=== PATIENT | male | born 1990 | race Caucasian/White ===

== ENCOUNTER 2022-04-15 11:12 | Outpatient (CLI) | payer OTHER, SELFPAY ==
--- NOTE | 2022-04-15 11:29 | CT_ITS ---
WS: [id number] CT ABDOMEN AND PELVIS NONCONTRAST HISTORY: R FLANK PAIN/ RLQ PAIN TECHNIQUE: Imaging performed through the abdomen and pelvis. Coronal and sagittal reformats are submi tted. All CT scans at [facility] use at least one of these dose optimization techniques: auto mated exposure control; mA and/or kV adjustment per patient size (includes targeted exams where dose is matched to clinical indication); or iterative reconstruction. DLP: 1460.85 mGy.cm COMPARISON: None available. Lower thorax: Lung bases are clear. Visualized heart is normal. No hiatal hernia. Liver: Normal size liver with mild hepatic steatosis. Gallbladder: Normal gallbladder. Pancreas: Normal size and attenuation. Normal pancreatic duct. No pancreatitis or mass. Spleen: Normal. Adrenal glands: Normal. No mass. Right kidney: Very minimal perinephric edema greatest at the renal pelvis. There is mild dilatation o f the renal pelvis and the calyces. Mild RIGHT ureteral dilatation secondary to a 4 mm calcification at the UV junction. There are numerous additional nonobstructing calcifications in the renal pelvis o f a similar size. Left kidney: Normal size kidney with numerous nonobstructing calcifications measuring approximately 4 mm. Aorta: Normal abdominal aorta, no aneurysm or atherosclerosis. No free fluid, intraperitoneal air or significant lymphadenopathy. GI tract: Stomach and small bowel are negative. The appendix is normal. No colon obstruction. No sign ificant diverticulosis. Abdominal wall: Negative. No hernia. Pelvis: Urinary bladder is not distended. Again noted is a 4 mm distal RIGHT ureteral calcification. Inguinal canals are patent bilaterally containing fat only. Osseous structures: Unremarkable. CT/CT kidney stone [id number] IMPRESSION: 1. Mild RIGHT hydroureteronephrosis secondary to a 4 mm calcification at the U VJ. 2. Additional numerous similar sized nonobstructing calcifications within each kidney. 3. Normal appendix. 4. Small hiatal hernia.
== END 2022-04-15 11:13 | disposition home or self-care (01) ==
PROVIDERS: PCP Nurse Practitioner Family; Visit Provider Nurse Practitioner Family
DX: N13.30 Unspecified hydronephrosis (principal); N20.1 Calculus of ureter
CPT/HCPCS: 74176

== ENCOUNTER 2022-04-15 12:09 | Emergency (ER) | payer OTHER, SELFPAY ==
[2022-04-15 12:49] VITALS: BP 158/94; PULSE 80; RESP 16; TEMP 36.7; O2SAT 97; BMI 36.5
--- NOTE | 2022-04-15 12:56 | W.ED.ABDPA2 ---
Documented by User: DARRELL Clark 04/15/22 14:04 HPI - Abdominal Pain General: Chief Complaint: Abdominal Pain Stated Complaint: Vomiting, Abd pain Time Seen by Provider: 04/15/22 12:54 Source: patient Mode of arrival: ambulatory Limitations: no limitations History of Present Illness: Patient is a nice 31-year-old male who presents to ED today with a complaint of right flank pain radiating around into his right abdomen that began around 6:30 AM this morning. Patient states he has felt very nauseous and did have an episode of emesis on his way to the ED. Prior to his arrival here he did have an evaluation by another provider who ordered a UA as well as a CT scan of his abdomen. Patient states he came to the ED because he was on his way home and he began having severe pain. He is not running fevers. He is having normal bowel movements. CT scan results were already resulted upon his arrival here and show a right 4 mm UVJ stone. Patient has no history of kidney or ureter stones. He does report some urinary urgency and frequency. MD elicited complaint: abdominal pain Onset (ago): hour(s) Pain Consistency: constant Location: RUQ, RLQ and R flank Severity: severe Quality: sharp Exacerbating factors: nothing Relieving factors: nothing Associated Symptoms: Reports nausea and vomiting; Denies chills, diarrhea, dysuria, fever(s) and hematuria Review of Systems Const: Denies: fever(s), chills, body aches, fatigue or malaise Card: Denies: chest pain Resp: Denies: dyspnea GI: Reports: abdominal pain, nausea and vomiting; Denies: diarrhea : Reports: flank pain, urinary frequency and urinary urgency; Denies: dysuria, hematuria or testicular pain Musc: Denies: neck pain, back pain, extremity pain or joint pain Skin/Breast: Denies: rash Neuro: Denies: headache(s) or dizziness Physical Exam Const: COMMON NORMALS: patient oriented x3, no limitations and alert GENERAL APPEARANCE: cooperative and in distress (appears slightly uncomfortable) ORIENTATION/CONSCIOUSNESS: Yes awake, Yes oriented to person, Yes oriented to place and Yes oriented to time HENMT: COMMON NORMALS: normocephalic and atraumatic HEAD & SCALP: normocephalic and atraumatic Resp: COMMON NORMALS: normal respiratory effort and clear to auscultation bilaterally AUSCULTATION: clear to auscultation bilaterally Cardio: COMMON NORMALS: regular rate and regular rhythm RATE: regular rate RHYTHM: regular rhythm GI: COMMON NORMALS: Normal to inspection, nondistended, normoactive bowel sounds present, Soft to palpation, No hepatosplenomegaly present and no masses INSPECTION: Yes normal to inspection PALPATION: Yes Soft to palpation, Yes Tenderness to palpation present (GI) (throughout R side of abdomen), No Guarding due to palpation present (GI), No Rigid due to palpation and Yes No hepatosplenomegaly present : BLADDER/KIDNEY EXAM: Yes CVA tenderness on the right Back/Pelvis: COMMON NORMALS: thoracic and lumbar spine normal to inspection, no thoracic nor lumbar tenderness and thoraco-lumbar ROM normal GENERAL BACK: Yes CVA tenderness Extremity: COMMON NORMALS: normal to inspection GENERAL: Yes normal exam except as noted Neuro: GERA COMA SCALE: document GCS findings [place] coma scale eye opening: Spontaneous Grea coma scale verbal response: Orientated [place] coma scale motor response: Obey commands [place] coma scale total score: 15 COMMON NORMALS: patient oriented x3, moves all extremities, no focal motor deficits, no sensory deficits noted and gait normal SENSORIUM/ORIENTATION: Yes alert, Yes oriented to person, Yes oriented to place and Yes oriented to time Skin: COMMON NORMALS: no rashes or lesions noted GENERAL SKIN EXAM: no rashes or lesions noted Course Vital Signs: Vital signs: Vital Signs Temperature 97.8 F 04/15/22 14:11 Pulse Rate 76 04/15/22 14:11 Respiratory Rate 16 04/15/22 14:11 Blood Pressure 141/85 04/15/22 14:11 Pulse Oximetry 99 04/15/22 14:11 MDM - Abdominal Pain Medical Decision Making Patient here with right 4 mm UVJ stone. Pain was easily controlled here with IV Toradol. He was given IV fluids. Labs show a white count of 18.9. Most likely this is stress-induced as his UA does not show any evidence for infection. His chemistry panel overall is unremarkable. He is a very mild elevation to his creatinine at 1.3. Recommend pushing fluids is much as possible. We will send home on pain/nausea medications as well as flomax, give him a urine strainer, and have him follow-up with Dr. Barrios's office. Strict return ED precautions were given and he voiced understanding of these. Lab Data : 04/15/22 13:19 04/15/22 13:19 Labs/Radiology: Laboratory Results WBC 18.9 10^3/uL (4.0-10.0) H 04/15/22 13:19 RBC 5.11 10^6/uL (4.1-5.3) 04/15/22 13:19 Hgb 15.2 g/dL (11.7-16.6) 04/15/22 13:19 Hct 45.7 % (42.0-52.0) 04/15/22 13:19 MCV 89.4 fl (80-94) 04/15/22 13:19 MCH 29.7 pg (28.0-34.0) 04/15/22 13:19 MCHC 33.3 g/dL (30.0-36.0) 04/15/22 13:19 RDW 12.2 % (12.1-15.1) 04/15/22 13:19 Plt Count 332 10^3/cmm (130-400) 04/15/22 13:19 MPV 9.5 fL (7.4-10.4) 04/15/22 13:19 Neut % (Auto) 88.0 % 04/15/22 13:19 Lymph % (Auto) 8.7 % 04/15/22 13:19 [place] % (Auto) 2.4 % 04/15/22 13:19 Eos % (Auto) 0.1 % 04/15/22 13:19 Baso % (Auto) 0.3 % 04/15/22 13:19 Neut # (Auto) 16.61 10^3/uL (1.8-7.7) H 04/15/22 13:19 Lymph # (Auto) 1.6 10^3/uL (0.8-4.8) 04/15/22 13:19 [place] # (Auto) 0.5 10^3/uL (0.2-0.9) 04/15/22 13:19 Eos # (Auto) 0.0 10^3/uL (0.0-0.8) 04/15/22 13:19 Baso # (Auto) 0.1 10^3/uL (0.0-0.1) 04/15/22 13:19 Nucleated RBC % (auto) 0 % 04/15/22 13:19 Nucleated RBCs # 0.0 /100WBC 04/15/22 13:19 Sodium 137 mmol/L (136-145) 04/15/22 13:19 Potassium 4.2 mmol/L (3.5-5.1) 04/15/22 13:19 Chloride 100 mmol/L (98-107) 04/15/22 13:19 Carbon Dioxide 24 mmol/L (22-29) 04/15/22 13:19 Anion Gap 17.2 (5-19) 04/15/22 13:19 BUN 17 mg/dL (6-20) 04/15/22 13:19 Creatinine 1.3 mg/dL (0.7-1.2) H 04/15/22 13:19 GFR Calculation 64.4 mL/min (90-130) L 04/15/22 13:19 Glucose 126 mg/dL (65-115) H 04/15/22 13:19 Calculated Osmolality 287 mOsm/kg (285-295) 04/15/22 13:19 Calcium 9.1 mg/dL (8.5-10.5) 04/15/22 13:19 Total Bilirubin 0.4 mg/dL (0.15-1.2) 04/15/22 13:19 AST 18 U/L (0-40) 04/15/22 13:19 ALT 15 U/L (0-41) 04/15/22 13:19 Alkaline Phosphatase 57 IU/L (40-130) 04/15/22 13:19 Total Protein 8.1 g/dL (6.6-8.7) 04/15/22 13:19 Albumin 4.5 g/dL (3.5-5.2) 04/15/22 13:19 Globulin 3.6 g/dL (1.3-4.6) 04/15/22 13:19 Urine Color Yellow (Yellow) 04/15/22 13:19 Urine Appearance Cloudy (CLEAR) 04/15/22 13:19 Urine pH 5 (5-7) 04/15/22 13:19 Ur Specific [place] 1.030 (1.005-1.030) 04/15/22 13:19 Urine Protein Neg (Negative) 04/15/22 13:19 Urine Glucose (UA) Norm (Normal) 04/15/22 13:19 Urine Ketones Negative (Negative) 04/15/22 13:19 Urine Blood 3+ (Negative) H 04/15/22 13:19 Urine Nitrate Negative (Negative) 04/15/22 13:19 Urine Bilirubin Neg (Negative) 04/15/22 13:19 Urine Urobilinogen Norm mg/dL (Negative) 04/15/22 13:19 Ur Leukocyte Esterase Negative (Negative) 04/15/22 13:19 Urine RBC 0-4 /hpf (0-2) H 04/15/22 13:19 Urine WBC None /hpf (0-5) 04/15/22 13:19 Ur Squamous Epith Cells 0-4 /hpf (0-5) H 04/15/22 13:19 Amorphous Sediment 3+ /hpf 04/15/22 13:19 Urine Bacteria None /hpf (NONE) 04/15/22 13:[address] ab/pelvis renal stone: Radiologist's impression: CT/CT kidney stone [id number] IMPRESSION: ? 1.? Mild RIGHT hydroureteronephrosis secondary to a 4 mm calcification at the UVJ. 2.? Additional numerous similar sized nonobstructing calcifications within each kidney. 3.? Normal appendix. 4.? Small hiatal hernia. ? Discharge Plan Discharge Patient Disposition: Home Clinical Impression: Calculus of distal right ureter Condition: Stable Prescriptions: New hydrocodone-acetaminophen 5-325 mg tablet 1 tab PO Q6H PRN (Reason: pain) Qty: 20 0RF Flomax 0.4 mg capsule 0.4 mg PO DAILY Qty: 10 0RF ondansetron 4 mg tablet,disintegrating 4 mg PO Q8H PRN (Reason: nausea and vomiting) Qty: 15 0RF Discharge Orders: Discharge ED (Routine); Ordered 04/15/22 Ordered By: Veronica Chou Referrals: Bladimir Barrios MD [Physician] - Maritza Fischer FNP [Primary Care Provider] - Patient Instructions: Ureteral Stones (ED), Opioid Safety Activity Restrictions/Additional Instructions: As we discussed case management should contact you shortly to set you up with a follow-up appointment with our urologist Dr. Barrios. You need to return to the emergency department for worsening or uncontrollable pain, repetitive episodes of vomiting, inability to urinate, fevers, or any other concerns you may have. Hope you begin to feel better soon. Coding Level of Care Code ED Supervisor [employer] for [employer] Fwd Exam Comprehensive Documented by User: Luis Martins DO 04/16/22 10:59 HPI - Abdominal Pain General: Chief Complaint: Abdominal Pain Stated Complaint: Vomiting, Abd pain Time Seen by Provider: 04/15/22 12:54 Physical Exam Neuro: GERA COMA SCALE: document GCS findings [place] coma scale total score: 15 Course Vital Signs: Vital signs: Vital Signs Temperature 97.8 F 04/15/22 14:11 Pulse Rate 76 04/15/22 14:11 Respiratory Rate 16 04/15/22 14:11 Blood Pressure 141/85 04/15/22 14:11 Pulse Oximetry 99 04/15/22 14:11 MDM - Abdominal Pain Medical Decision Making Patient here with right 4 mm UVJ stone. Pain was easily controlled here with IV Toradol. He was given IV fluids. Labs show a white count of 18.9. Most likely this is stress-induced as his UA does not show any evidence for infection. His chemistry panel overall is unremarkable. He is a very mild elevation to his creatinine at 1.3. Recommend pushing fluids is much as possible. We will send home on pain/nausea medications as well as flomax, give him a urine strainer, and have him follow-up with Dr. Barrios's office. Strict return ED precautions were given and he voiced understanding of these. Level review Lab Data : 04/15/22 13:19 04/15/22 13:19 Labs/Radiology: Laboratory Results WBC 18.9 10^3/uL (4.0-10.0) H 04/15/22 13:19 RBC 5.11 10^6/uL (4.1-5.3) 04/15/22 13:19 Hgb 15.2 g/dL (11.7-16.6) 04/15/22 13:19 Hct 45.7 % (42.0-52.0) 04/15/22 13:19 MCV 89.4 fl (80-94) 04/15/22 13:19 MCH 29.7 pg (28.0-34.0) 04/15/22 13:19 MCHC 33.3 g/dL (30.0-36.0) 04/15/22 13:19 RDW 12.2 % (12.1-15.1) 04/15/22 13:19 Plt Count 332 10^3/cmm (130-400) 04/15/22 13:19 MPV 9.5 fL (7.4-10.4) 04/15/22 13:19 Neut % (Auto) 88.0 % 04/15/22 13:19 Lymph % (Auto) 8.7 % 04/15/22 13:19 [place] % (Auto) 2.4 % 04/15/22 13:19 Eos % (Auto) 0.1 % 04/15/22 13:19 Baso % (Auto) 0.3 % 04/15/22 13:19 Neut # (Auto) 16.61 10^3/uL (1.8-7.7) H 04/15/22 13:19 Lymph # (Auto) 1.6 10^3/uL (0.8-4.8) 04/15/22 13:19 [place] # (Auto) 0.5 10^3/uL (0.2-0.9) 04/15/22 13:19 Eos # (Auto) 0.0 10^3/uL (0.0-0.8) 04/15/22 13:19 Baso # (Auto) 0.1 10^3/uL (0.0-0.1) 04/15/22 13:19 Nucleated RBC % (auto) 0 % 04/15/22 13:19 Nucleated RBCs # 0.0 /100WBC 04/15/22 13:19 Sodium 137 mmol/L (136-145) 04/15/22 13:19 Potassium 4.2 mmol/L (3.5-5.1) 04/15/22 13:19 Chloride 100 mmol/L (98-107) 04/15/22 13:19 Carbon Dioxide 24 mmol/L (22-29) 04/15/22 13:19 Anion Gap 17.2 (5-19) 04/15/22 13:19 BUN 17 mg/dL (6-20) 04/15/22 13:19 Creatinine 1.3 mg/dL (0.7-1.2) H 04/15/22 13:19 GFR Calculation 64.4 mL/min (90-130) L 04/15/22 13:19 Glucose 126 mg/dL (65-115) H 04/15/22 13:19 Calculated Osmolality 287 mOsm/kg (285-295) 04/15/22 13:19 Calcium 9.1 mg/dL (8.5-10.5) 04/15/22 13:19 Total Bilirubin 0.4 mg/dL (0.15-1.2) 04/15/22 13:19 AST 18 U/L (0-40) 04/15/22 13:19 ALT 15 U/L (0-41) 04/15/22 13:19 Alkaline Phosphatase 57 IU/L (40-130) 04/15/22 13:19 Total Protein 8.1 g/dL (6.6-8.7) 04/15/22 13:19 Albumin 4.5 g/dL (3.5-5.2) 04/15/22 13:19 Globulin 3.6 g/dL (1.3-4.6) 04/15/22 13:19 Urine Color Yellow (Yellow) 04/15/22 13:19 Urine Appearance Cloudy (CLEAR) 04/15/22 13:19 Urine pH 5 (5-7) 04/15/22 13:19 Ur Specific [place] 1.030 (1.005-1.030) 04/15/22 13:19 Urine Protein Neg (Negative) 04/15/22 13:19 Urine Glucose (UA) Norm (Normal) 04/15/22 13:19 Urine Ketones Negative (Negative) 04/15/22 13:19 Urine Blood 3+ (Negative) H 04/15/22 13:19 Urine Nitrate Negative (Negative) 04/15/22 13:19 Urine Bilirubin Neg (Negative) 04/15/22 13:19 Urine Urobilinogen Norm mg/dL (Negative) 04/15/22 13:19 Ur Leukocyte Esterase Negative (Negative) 04/15/22 13:19 Urine RBC 0-4 /hpf (0-2) H 04/15/22 13:19 Urine WBC None /hpf (0-5) 04/15/22 13:19 Ur Squamous Epith Cells 0-4 /hpf (0-5) H 04/15/22 13:19 Amorphous Sediment 3+ /hpf 04/15/22 13:19 Urine Bacteria None /hpf (NONE) 04/15/22 13:19 Discharge Plan Discharge Patient Disposition: Home Clinical Impression: Calculus of distal right ureter Condition: Stable Prescriptions: New hydrocodone-acetaminophen 5-325 mg tablet 1 tab PO Q6H PRN (Reason: pain) Qty: 20 0RF Flomax 0.4 mg capsule 0.4 mg PO DAILY Qty: 10 0RF ondansetron 4 mg tablet,disintegrating 4 mg PO Q8H PRN (Reason: nausea and vomiting) Qty: 15 0RF Discharge Orders: Discharge ED (Routine); Ordered 04/15/22 Ordered By: Veronica Chou Referrals: Bladimir Barrios MD [Physician] - Maritza Fischer FNP [Primary Care Provider] - Patient Instructions: Ureteral Stones (ED), Opioid Safety Activity Restrictions/Additional Instructions: As we discussed case management should contact you shortly to set you up with a follow-up appointment with our urologist Dr. Barrios. You need to return to the emergency department for worsening or uncontrollable pain, repetitive episodes of vomiting, inability to urinate, fevers, or any other concerns you may have. Hope you begin to feel better soon. Coding Level of Care Code ED Supervisor [employer] for [employer] Fwd Exam Comprehensive
[2022-04-15] MEDS: sodium chloride 0.9% 1,000 ML 999 ML IV (13:16)
[2022-04-15] MEDS: ketorolac 60 mg/2 mL INJ 30 MG IVP (13:16)
[2022-04-15] MEDS: ondansetron 2 mg/ML SDV 2 mL 4 MG IVP (13:16)
[2022-04-15 13:25] LABS: Basophils # 0.1 10^3/uL (0.0-0.1); Basophils % 0.3 %; Eosinophils % 0.1 %; Hematocrit 45.7 % (42.0-52.0); Hemoglobin 15.2 g/dL (11.7-16.6); Lymphocytes # 1.6 10^3/uL (0.8-4.8); Lymphocytes % 8.7 %; Mean Corpuscular HGB Conc 33.3 g/dL (30.0-36.0); Mean Corpuscular Hemoglobin 29.7 pg (28.0-34.0); Mean Corpuscular Volume 89.4 fl (80-94); Mean Platelet Volume 9.5 fL (7.4-10.4); Monocytes # 0.5 10^3/uL (0.2-0.9); Monocytes % 2.4 %; Neutrophils # 16.61 10^3/uL (1.8-7.7); Nucleated Red Blood Cells % 0 %; Platelet Count 332 10^3/cmm (130-400); Red Blood Count 5.11 10^6/uL (4.1-5.3); Red Cell Distribution Width 12.2 % (12.1-15.1); White Blood Count 18.9 10^3/uL (4.0-10.0)
[2022-04-15 13:26] LABS: Urine Appearance Cloudy (CLEAR); Urine Color Yellow (Yellow)
[2022-04-15 13:27] LABS: Add Urine Microscopic? YES; Bilirubin Urine Neg (Negative); Blood Urine 3+ (Negative); Glucose Urine UA Norm (Normal); Ketones Urine Negative (Negative); Leukocyte Esterase Urine Negative (Negative); Nitrate Urine Negative (Negative); Protein Urine Neg (Negative); Urobilinogen Urine Norm (Negative); pH Urine 5 (5-7)
[2022-04-15 13:32] LABS: Add Urine Culture? No; Amorphous Sediment Urine 3+ /hpf; RBC Urine 0-4 /hpf (0-2); Squamous Epithelial Cell Urine 0-4 /hpf (0-5)
[2022-04-15 13:46] LABS: Alanine Aminotransferase 15 U/L (0-41); Albumin Level 4.5 g/dL (3.5-5.2); Alkaline Phosphatase 57 IU/L (40-130); Anion Gap 17.2 (5-19); Aspartate Amino Transferase 18 U/L (0-40); Blood Urea Nitrogen 17 mg/dL (6-20); Calcium 9.1 mg/dL (8.5-10.5); Carbon Dioxide 24 mmol/L (22-29); Chloride 100 mmol/L (98-107); Globulin 3.6 g/dL (1.3-4.6); Glomerular Filtration Rate 64.4 mL/min (90-130); Glucose 126 mg/dL (65-115); Osmolality Calculated 287 mOsm/kg (285-295); Potassium 4.2 mmol/L (3.5-5.1); Sodium 137 mmol/L (136-145); Total Bilirubin 0.4 mg/dL (0.15-1.2); Total Protein 8.1 g/dL (6.6-8.7)
[2022-04-15 14:11] VITALS: BP 141/85; PULSE 76; RESP 16; TEMP 36.6; O2SAT 99
--- NOTE | 2022-04-18 15:32 | DCPLANNER ---
Addendum entered by Tracy Rivas 05/02/22 18:17: Patient had a follow up appointment scheduled for 04.21.[address] Barrios at urology - patient did attend appointment. Original Note: retail cosmetics sales counter manager had message to schedule a follow up appointment for patient with urology. retail cosmetics sales counter manager sent patients information to the front office staff at urology. Patients information will be printed and reviewed. Clinic will call patient with appointment information.
== END 2022-04-15 14:12 | disposition home or self-care (01) ==
PROVIDERS: Emergency Provider Physician Assistant; PCP Nurse Practitioner Family
DX: N20.1 Calculus of ureter (principal)
CPT/HCPCS: 80053; 81001; 85025; 96361; 96374; 96375; 99284; J1885; J2405; J7030

== ENCOUNTER 2022-04-21 14:36 | Outpatient (CLI) | payer OTHER, SELFPAY ==
--- NOTE | 2022-04-21 14:55 | XR_ITS ---
WS: [id number] KUB, AP view, 04/22/2022 Clinical Data: STONES Comparison: None. Findings: No abnormal intraabdominal masses are seen. There is no dilatated small bowel or evidence of obstruct ion. There are small bilateral calcifications overlying both kidneys. The bladder is partly full. No calci fications are seen in the true pelvis. XR/XR KUB [id number] Impression: Bilateral renal calcifications.
== END 2022-04-21 14:37 | disposition home or self-care (01) ==
LOC: RAD 14:41
PROVIDERS: PCP Nurse Practitioner Family; Visit Provider Urology
DX: N20.1 Calculus of ureter (principal)
CPT/HCPCS: 74018; 81003; 82365; 88300

== ENCOUNTER 2022-07-04 07:56 | Outpatient (CLI) | payer OTHER, SELFPAY ==
[2022-07-04 14:45] LABS: Blood Urea Nitrogen 11 mg/dL (6-20); Calcium 9.6 mg/dL (8.5-10.5); Carbon Dioxide 25 mmol/L (22-29); Chloride 104 mmol/L (98-107); Glomerular Filtration Rate 87.2 mL/min (90-130); Glucose 136 mg/dL (65-115); Osmolality Calculated 291 mOsm/kg (285-295); Phosphorus 3.4 mg/dL (2.5-4.5); Sodium 140 mmol/L (136-145); Uric Acid 8.1 mg/dL (3.4-7.0)
[2022-07-04 14:50] LABS: Anion Gap 14.9 (5-19); Potassium 3.9 mmol/L (3.5-5.1)
[2022-07-11 19:42] LABS: Calcium-Oxalate 0.85 (<2.00); Uric Stone 0.26 (<2.00); Urine Ammonia 24 Hour 14 mEq/day (14-62); Urine Citric Acid 24 Hour 366 mg/day (>320); Urine PH 24 Hour 6.6 (5.5-7.0); Urine Phosphorus 24 Hour 687 mg/day (<1100); Urine Potassium 24 Hour 27 mEq/day (19-135); Urine Sulfate 24 Hour 10 mmol/day (<30)
== END 2022-07-04 07:57 | disposition home or self-care (01) ==
PROVIDERS: PCP Nurse Practitioner Family; Visit Provider Urology
DX: N20.0 Calculus of kidney (principal)
CPT/HCPCS: 36415; 80048; 81003; 82131; 82140; 82340; 82436; 82507; 82570; 83735; 83935; 84100; 84300; 84550

== ENCOUNTER 2022-08-01 11:28 | Outpatient (CLI) | payer OTHER, SELFPAY ==
--- NOTE | 2022-08-01 11:48 | XR_ITS ---
WS: [id number] Exam: XR KUB [id number] Date/Time of Exam: 08/01/2022 11:49 AM Reason For Exam: Renal Stones Comparison 04/21/2022. Calcifications superimpose both kidneys and apparently represent known renal stones. No sign of bowel obstruction or free air. No sign of organ enlargement. Regional bony elements appear normal. XR/XR KUB [id number] IMPRESSION: 1. Small bilateral renal stones which have been reported previously. 2. No acute abdominal finding.
== END 2022-08-01 11:29 | disposition home or self-care (01) ==
PROVIDERS: PCP Nurse Practitioner Family; Visit Provider Urology
DX: N20.0 Calculus of kidney (principal)
CPT/HCPCS: 74018; 81003

== ENCOUNTER 2024-01-18 16:09 | Outpatient (CLI) | payer OTHER, SELFPAY ==
--- NOTE | 2024-01-18 16:30 | XR_ITS ---
WS: [id number] Left hand, 2 views, 01/18/2024 Clinical Data: LT HAND PAIN Comparison: None. Findings: No fractures or dislocations are seen. The soft tissues are unremarkable. The joint spaces are normal Impression: Negative left hand.
== END 2024-01-18 16:10 | disposition home or self-care (01) ==
PROVIDERS: PCP Nurse Practitioner Family; Visit Provider Nurse Practitioner Family
DX: M79.642 Pain in left hand (principal)
CPT/HCPCS: 73120